=== PATIENT | male | born 2000 | race Caucasian/White ===

== ENCOUNTER 2019-06-30 00:58 | Emergency (ER) | payer OTHER ==
[~2019-06-30] VITALS: Ht 177.8 cm; Wt 68.0 kg
--- NOTE | 2019-06-30 00:59 | NUR ---
PT NIKA BAEZAS. TAKEN TO BED 4
[2019-06-30 01:00] VITALS: BP 130/91
--- NOTE | 2019-06-30 01:05 | NUR ---
19 Y/O MALE BIBA FROM [facility]. PRESENTS TO ED, C/O RASH. PT STATES TAKING CIPRO FIRST DOSE FOR UTI, STARTED HAVING RASH ON NECK AND SPREAD TO TORSO. MILD UTICARIA ON TORSO. NO SOB/DIFFICULTY BREATHING NOTED. LUNG SOUNDS BILAT CLEAR. PT DENIES ANY CHEST PAIN. PT RECEIVED BENADRYL 50MG IVP BY [employer]ER ENROUTE TO ED. PT VSS. ERMD AWARE. WILL CONTINUE TO MONITOR.
--- NOTE | 2019-06-30 01:12 | NUR ---
Dr. Centeno examining patient.
[2019-06-30] MEDS ORDERED: NACL 0.9% 1,000 ML IV ONE (01:14)
[2019-06-30] MEDS ORDERED: FAMOTIDINE 20 MG/2 ML VIAL IVP ONE (01:15)
[2019-06-30] MEDS ORDERED: methylPREDNISolone SS 125 MG in WATER STERILE 2 ML IVP ONE (01:15)
[2019-06-30] MEDS ORDERED: methylPREDNISolone SS 125 MG/2 ML VIAL ONE (01:28)
[2019-06-30] MEDS ORDERED: WATER STERILE 10 ML MC ONE (01:28)
[2019-06-30 02:05] LABS: APPEARANCE,URINE CLEAR (CLEAR); BILIRUBIN,URINE NEGATIVE (NEGATIVE); BLOOD, URINE NEGATIVE (NEGATIVE); COLOR,URINE YELLOW (YELLOW); LEUKOCYTE ESTERASE ,URINE NEGATIVE (NEGATIVE); NITRITE, URINE NEGATIVE (NEGATIVE); UGLUCOSE NEGATIVE (NEGATIVE)
[2019-06-30 02:30] VITALS: BP 130/91
--- NOTE | 2019-06-30 02:30 | NUR ---
PT DISCHARGED WITH PAPERWORK. EDUCATED PT REGARDING MEDICATIONS AND D/C INSTRUCTIONS. PT VERBALIZED UNDERSTANDING OF TEACHING. TOLD PT TO FOLLOW UP WITH PCP AND WHEN TO RETURN TO ED. PT STABLE CONDITION. ALL QUESTIONS ANSWERED.
== END 2019-06-30 02:30 | disposition home or self-care (01) ==
LOC: MED 00:58
DX: L50.9 Urticaria, unspecified (principal); Z88.0 Allergy status to penicillin; Z88.1 Allergy status to other antibiotic agents
CPT/HCPCS: 81003; 96374; 96375; 99283; J2930; J3490; J7030